=== PATIENT | male | born 1990 | race African-American/Black ===

== ENCOUNTER 2025-08-02 21:34 | Emergency (ER) | payer SELFPAY ==
--- NOTE | ~2025-08-02 | XR_ITS ---
CLINICAL HISTORY: S P BYSTANDER CPR 1 view chest x-ray Comparison: None provided Findings: The lungs are clear. Normal size heart. No acute fracture. IMPRESSION: 1. No acute findings. This document has been electronically signed by: Luh Emmanuel MD on 08/02/2025 23:13:20
[2025-08-02 21:38] VITALS: BP 117/60; BP 139/89; PULSE 100; PULSE 83; RESP 20; O2SAT 94; O2SAT 96; BMI 23.0
[2025-08-02 21:47] VITALS: TEMP 36.6
--- NOTE | 2025-08-02 22:21 | ED_ITS ---
HPI - Overdose General Chief Complaint: Overdose Stated Complaint: found unresponsive, narcan given,uncooperative Time Seen by Provider: 08/02/25 21:46 Source: patient and EMS Mode of arrival: EMS Limitations: other History of Present Illness ED Provider: Dr. Arti Covington HPI Narrative: Patient comes to the emergency room via ambulance. According to EMS, patient was found down by a bystander unresponsive. When EMS arrived, the bystander was performing CPR. According to EMS, initial oxygen saturation was 6%, pinpoint pupils, they gave 2 doses of Narcan and patient woke up immediately. Patient woke up very combative. On arrival to the emergency room, patient awake, combative, complaining of generalized malaise and nausea. Patient denies SI Related Data Allergies Allergy/AdvReac Type Severity Reaction Status Date / Time No Known Allergies Allergy Verified 08/02/25 21:45 Review of Systems 2 Review of Systems: Constitutional : No Weight loss, complaining of feeling cold, No Fever, No Chills, No Night Sweats, No Fatigue, No Malaise ENT/Mouth : No Hearing loss, No Ear Pain, No Nasal Congestion, No Sinus Pain, No Hoarseness, No sore throat, No Rhinorrhea, No Swallowing Difficulty Eyes: No Eye Pain, No Swelling, No Redness, No Foreign Body, No Discharge, No Vision Changes Cardiovascular : No Chest Pain, No SOB, No Dyspnea on Exertion, No Orthopnea, No Edema, No Palpitations Respiratory : No Cough, No Sputum, No Wheezing, No Smoke Exposure, No Dyspnea Gastrointestinal : No Nausea, No Vomiting, No Diarrhea, No Constipation, No abdominal Pain, No Hematochezia, No Melena Genitourinary : no irregular bleeding, No Dysuria, No Urinary Frequency, No Hematuria, No Urinary Incontinence, No Urgency, No Flank Pain, No Urinary Flow Changes, No Hesitancy Musculoskeletal : No joint pain, No Myalgias, No Joint Swelling Skin : No Skin Lesions, No rash Neuro : No Weakness, No Numbness, No Paresthesias, No Loss of Consciousness, No Dizziness, No Headache Psych : No Anxiety/Panic, No Depression, No SI/HI/AH/VH, admits to using drugs Heme/Lymph: No Bruising, No Bleeding,No Lymphadenopathy Endocrine : No Polyuria, No Polydipsia, No Temperature Intolerance PMFSH Social History Social History Unable to assess alcohol history related to: Unknown Smoked in Last 30 Days: No Use of substances other than those prescribed or required for medical reasons: Yes Substance Use Type: Heroin Physical Exam 2 Exam: Exam: Appearance: Alert. Oriented X3. Angry, combative but redirectable Eyes: Pupils equal, round and reactive to light. ENT: Pharynx normal. Neck: Normal inspection. Neck supple. No lymph nodes noted. No crepitus CVS: Normal heart rate and rhythm. Pulses normal. Normal S1 and S2 Respiratory: No respiratory distress. Breath sounds normal. No Wheezing. No rales Abdomen: Soft and nontender. No rigidity. No distention. Skin: Skin warm and dry. Normal skin color. Normal skin turgor. Extremities: No lower extremity edema. No Lacerations. No Rash Neuro: Oriented X 3. No motor deficit. No sensory deficit. Moving all extremities. No slurred speech. CN 2 through 12 grossly intact Psych: Combative but redirectable Vital Signs: Vital Signs: Last Vital Signs Temp 99.6 F 08/03/25 00:39 Pulse 87 08/03/25 00:39 Resp 16 08/03/25 00:39 BP 103/55 L 08/03/25 00:39 Pulse Ox 93 08/03/25 00:39 O2 Del Method Room Air 08/03/25 00:39 BMI result Body Mass Index 23.0 Course Course Course Narrative: Patient was found by a bystander, CPR was done prior to arrival, patient woke up with Narcan All of patient's labs pending At this time, patient declined sude/care team Denies SI or HI Section 12 not indicated Patient will be provided with home Narcan upon discharge Patient remains in the monitor, oxygen saturation 94% on room air Physician observation started at 21:45 Medical Decision Making Medical Decision Making [facility] Narrative: My interpretation of labs: No significant abnormality patient's hematology or chemistry, ETOH negative Patient did not provide a urine sample. However, patient is demanding a Suboxone taper. It was discussed with the patient that we will not be provided with a taper. Patient was given information to contact the clinics for proper treatment. Patient became route and belligerent with his nurse. Patient is awake, alert and oriented x3, blood pressure 103/55, heart rate 87, oxygen saturation 95% on room air. I was informed by registration that patient is refusing to give any of his information Differential Diagnosis Differential Diagnoses: The differential diagnosis associated with the presentation includes (Polysubstance abuse, overdose) Admission/Observation Consideration of admission/observation: Escalation of care including admission/observation considered Lab Data MDM Lab Attestation statement: I reviewed the patient's lab results. 08/02/25 22:38 08/02/25 22:38 Labs: Lab Results 08/02/25 Range/Units 22:38 WBC 6.2 (4.8-10.8) X10*3/uL RBC 4.32 L (4.60-5.80) X10*6/uL Hgb 11.7 L (14.0-18.0) g/dl Hct 34.5 L (42.0-52.0) % MCV 79.9 L (80.0-98.0) fL MCH 27.1 (27.0-33.0) pg MCHC 33.9 (31.0-36.0) g/dl RDW 13.2 (11.0-16.0) % Plt Count 213 (160-400) X10*3/uL MPV 10.1 (9.4-12.4) fL Immature Gran % (Auto) 0.0 (0.0-0.4) % Neut % (Auto) 76.9 H (45-73) % Lymph % (Auto) 16.4 L (20-40) % [place] % (Auto) 5.2 (2-11) % Eos % (Auto) 1.0 (0-4) % Baso % (Auto) 0.5 (0-2) % Lymph # (Auto) 1.0 L (1.2-4.9) X10*3/uL [place] # (Auto) 0.3 (0.1-1.2) X10*3/uL Eos # (Auto) 0.1 (0.0-0.4) X10*3/uL Baso # (Auto) 0.0 (0.0-0.2) X10*3/uL Abs Immat Gran (auto) 0.00 (0.00-0.03) X10*3/uL Absolute Neuts (auto) 4.8 (2.0-8.3) x10*3/uL Absolute Nucleated RBC 0.000 (0.0-0.012) X10*3/uL Nucleated RBC % (auto) 0.0 (0.0-0.2) /100WBC Sodium 139 (135-145) mmol/L Potassium 3.6 (3.3-5.1) mmol/L Chloride 107 (96-108) mmol/L Carbon Dioxide 26 (22-29) mmol/L Anion Gap 10 L (12-20) BUN 14 (9-16) mg/dL Creatinine 1.12 (0.5-1.4) mg/dL Estim Creat Clear Calc 99.0 Estimated GFR > 60 Random Glucose 100 (60-115) mg/dL Calcium 8.0 L (8.4-10.2) mg/dL Total Bilirubin 0.4 (0.0-1.0) mg/dL Direct Bilirubin 0.1 (0.0-0.5) mg/dL AST 59 H (5-37) U/L ALT 43 H (0-40) U/L Alkaline Phosphatase 58 (39-117) U/L Troponin I High Sens 2.9 (<3.5-35.0) ng/L Total Protein 6.2 L (6.5-8.0) g/dL Albumin 3.9 (3.5-5.0) g/dL Ethyl Alcohol < 10 mg/dL Critical Care Time Critical Care Time Critical Care Time: Yes Total Critical Care Time: 45 Attestation: I have personally provided critical care time. Time includes review of lab data, radiology results, discussion with consultants, and monitoring for potential decompensation. Intervention performed as documented. Discharge Plan Discharge Clinical Impression: Drug overdose Patient Disposition: Home, Self-Care Instructions: Adult Overdose (ED) Additional Instructions: Overdose You were seen in our Emergency Department for an overdose today. You received narcan in order to reverse the effects of overdose. Narcan only lasts about 45 min to 1 hour in the system. You may have been given narcan to take home with you today, please keep it near you if you are going to use again, so others can use it if needed.? The number one risk for fatal overdose is using alone? [facility] is a 24/7 hotline where you can be on the phone with someone while you use, and they can call for help if they suspect an overdose: [phone] Things to look out for when you leave include severe vomiting or diarrhea, headaches, muscle cramps, fever, coughing, chest pain, or if you feel so short of breath you cannot walk to the bathroom. Please seek care and return any time for worsening symptoms.? You may have been provided with safer injection?items, please take time to take care of YOU and your health. Use new supplies whenever possible to lessen the chances of infections and other illnesses.? If you need more supplies, please go [facility],? [address] [place] [address] OR you can call or text to coordinate delivery of safer supplies. If you decide you want to stop or cut down on how much you?re using, please call the numbers on the list provided to you or you can come to our outpatient Addiction Treatment office [facility] [place] (M-F 9am-5p) [address] [place] [address], [address] [place], [place]. [phone]
[2025-08-02 22:44] LABS: MANUAL DIFF FLAG NO
[2025-08-02 22:45] LABS: Hematocrit 34.5 % (42.0-52.0); Hemoglobin 11.7 g/dl (14.0-18.0); Imm Gran Abs Auto 0.00 X10*3/uL (0.00-0.03); Imm Gran Pct Auto 0.0 % (0.0-0.4); Lymphocytes Absolute Auto 1.0 X10*3/uL (1.2-4.9); Mean Corpuscular HGB Conc 33.9 g/dl (31.0-36.0); Mean Corpuscular Hemoglobin 27.1 pg (27.0-33.0); Mean Corpuscular Volume 79.9 fL (80.0-98.0); NRBC Abs Auto 0.000 X10*3/uL (0.0-0.012); NRBC Pct Auto 0.0 /100WBC (0.0-0.2); Platelet Count 213 X10*3/uL (160-400); Red Blood Count 4.32 X10*6/uL (4.60-5.80); White Blood Count 6.2 X10*3/uL (4.8-10.8)
[2025-08-02 23:00] LABS: Alanine Aminotransferase 43 U/L (0-40); Albumin Level 3.9 g/dL (3.5-5.0); Alkaline Phosphatase 58 U/L (39-117); Anion Gap 10 (12-20); Aspartate Amino Transferase 59 U/L (5-37); Blood Urea Nitrogen 14 mg/dL (9-16); Calcium 8.0 mg/dL (8.4-10.2); Carbon Dioxide 26 mmol/L (22-29); Chloride 107 mmol/L (96-108); Creatinine Clr Calc Pharmacy 99.0; Estimated Glomerular Filt Rate > 60; Potassium 3.6 mmol/L (3.3-5.1); Sodium 139 mmol/L (135-145); Total Protein 6.2 g/dL (6.5-8.0)
--- NOTE | 2025-08-03 00:08 | PC.NURSE ---
pt gear changer, placed on bedside monitor, pt sleeping, no sign of distress.
[2025-08-03 00:39] VITALS: BP 103/55; PULSE 87; RESP 16; TEMP 37.6; O2SAT 93
--- NOTE | 2025-08-03 02:20 | PC.NURSE ---
pt awake, requesting a jany for withdraws, pt given a drink.
[2025-08-03] MEDS: Naloxone HCl Nasal TAKE HOME 4 MG SPRAY 8 MG NOSTRILALT (02:33)
--- NOTE | 2025-08-03 02:36 | PC.NURSE ---
Pt given belonging back, nacran given, reviewed discharge instructions with pt. pt verbalized understanding, no sign of distress.
--- NOTE | 2025-08-03 02:53 | PC.NURSE ---
pt belonging signed out, given to pt, pt refusing to get dressed multiple times, notified Security to assist.
[2025-08-03 03:10] VITALS: BP 103/55; PULSE 87; RESP 16; TEMP 37.6; O2SAT 93
[2025-08-03 03:11] VITALS: BP 115/87; PULSE 86; RESP 20; TEMP 36.9; O2SAT 94
== END 2025-08-03 03:12 | disposition home or self-care (01) ==
PROVIDERS: Emergency Provider Emergency Medicine
DX: T50.901A Poisoning by unspecified drugs, medicaments and biological substances, accidental (unintentional), initial encounter (principal); R40.4 Transient alteration of awareness; R11.0 Nausea; R53.1 Weakness; Y92.9 Unspecified place or not applicable; Z51.81 Encounter for therapeutic drug level monitoring; Z79.899 Other long term (current) drug therapy
CPT/HCPCS: 36415; 71045; 80048; 80076; 80307; 84484; 85025; 99284; 99285

== ENCOUNTER → 2025-08-02 22:48 | Outpatient (BNV) | payer SELFPAY | PROVIDERS: Emergency Provider Emergency Medicine; Visit Provider Student in an Organized Health Care Education/Training Program | DX: Z86.74 Personal history of sudden cardiac arrest (principal) | CPT/HCPCS: 71045 ==